=== PATIENT | female | born 1960 | race Caucasian/White ===

== ENCOUNTER → 2018-06-23 | Outpatient (CLI) | payer BC | LOC: MC.RAD 08:59 | DX: Z12.31 Encounter for screening mammogram for malignant neoplasm of breast (principal) ==

== ENCOUNTER 2022-05-27 13:48 | Emergency (ER) | payer BC ==
[~2022-05-27] VITALS: Ht 157.5 cm; Wt 76.4 kg
[2022-05-27 13:57] VITALS: BP 136/91; PULSE 68; TEMP 97.1
== END 2022-05-27 15:00 | disposition home or self-care (01) ==
LOC: COL.ER 13:48
DX: S51.812A Laceration without foreign body of left forearm, initial encounter (principal); S61.512A Laceration without foreign body of left wrist, initial encounter; Z23 Encounter for immunization; W26.8XXA Contact with other sharp object(s), not elsewhere classified, initial encounter